=== PATIENT | female | born 1990 | race Caucasian/White ===

== ENCOUNTER 2022-08-08 11:22 | Emergency (ER) | payer OTHER ==
[2022-08-08] MEDS ORDERED: Ibuprofen 200 MG TAB ONE (12:17)
== END 2022-08-08 12:57 | disposition home or self-care (01) ==
LOC: CSHERS 11:22
DX: S83.91XA Sprain of unspecified site of right knee, initial encounter (principal); W19.XXXA Unspecified fall, initial encounter